=== PATIENT | female | born 1955 | race African-American/Black ===

== ENCOUNTER 2016-04-12 16:16 | Emergency (ER) | payer MEDICARE, OTHER ==
[2016-04-12] MEDS ORDERED: IPRATROPIUM-ALBUTEROL 3 ML NEB INHALATION STA (18:17)
[2016-04-12 18:20] LABS: Glucose,Whole Blood 157 mg/dL (75-99)
--- NOTE | 2016-04-12 18:30 | ED ---
URI HPI - General Chief Complaint: Upper Respiratory Infection Stated Complaint: Congestion,Fever Time Seen by Provider: 04/12/16 17:49 Source: patient, RN notes reviewed Mode of arrival: wheelchair Limitations: no limitations - History of Present Illness Initial Comments: Patient is a 60-year-old female presents to the emergency room for evaluation of cough and congestion. Patient states she has been having cold symptoms for the past 3 days. Patient states having all over body aches. Patient states that he nasal congestion, eyes watering, ear pain, throat pain and productive cough. Patient states she has pain every time she coughs. Patient denies nausea or vomiting, abdominal pain. Patient states been having on and off hot flashes and cold sweats. Patient denies taking her temperature. Patient denies receiving her influenza vaccine this year. Patient does admit that she has a history of asthma. Patient states has been using her inhaler no relief of symptoms. Patient admits to smoking daily. - Related Data Home Medications Medication Instructions Recorded Confirmed HYDROcodone/APAP 10-325MG [[place] 1 tab PO TID PRN 08/19/13 04/12/16 10] Insulin Aspart [NovoLOG] 28 unit SQ TID-W/MEALS 08/19/13 04/12/16 Insulin Glargine [Lantus] 58 unit SQ HS 08/19/13 04/12/16 Topiramate [Topamax] 100 mg PO BID 08/19/13 04/12/16 amLODIPine BESYLATE [Norvasc] 10 mg PO DAILY 08/19/13 04/12/16 levETIRAcetam [Keppra] 750 mg PO BID 08/19/13 04/12/16 metFORMIN HCL [Glucophage] 1,000 mg PO BID 08/19/13 04/12/16 Clopidogrel [Plavix] 75 mg PO DAILY 06/06/14 04/12/16 Levothyroxine Sodium [Synthroid] 200 mcg PO DAILY 02/28/15 04/12/16 Docusate Sodium [Dok] 100 mg PO DAILY 05/18/15 04/12/16 Albuterol Inhaler [Ventolin Hfa 1 - 2 puff INHALATION RT-Q6H PRN 07/10/15 Inhaler] Metoprolol Succinate [Toprol XL] 25 mg PO BID 04/12/16 04/12/16 Montelukast [Singulair] 10 mg PO DAILY 04/12/16 04/12/16 Rosuvastatin [Crestor] 10 mg PO HS 04/12/16 04/12/16 Previous Rx's Medication Instructions Recorded Azithromycin [Zithromax Z-pack] 250 mg PO DIRECTED #6 tab 04/12/16 predniSONE 50 mg PO DAILY #5 tab 04/12/16 Allergies Allergy/AdvReac Type Severity Reaction Status Date / Time No Known Allergies Allergy Verified 04/12/16 18:12 Review of Systems ROS Statement: Those systems with pertinent positive or pertinent negative responses have been documented in the HPI. ROS Other: All systems not noted in ROS Statement are negative. Past Medical History Past Medical History: Asthma, Blood Disorder, COPD, Diabetes Mellitus, Hyperlipidemia, Hypertension, Osteoarthritis (OA), Seizure Disorder, Sleep Apnea /CPAP/BIPAP Additional Past Medical History / Comment(s): HX OF ANEMIA, LAST SEIZURE YEARS AGO., STATES "MILD STROKE"-DENIES WEAKNESS OR ANY PROBLEMS , MIGRAINES, USES C -PAP MACHINE, CONSTIPATION, BACK & NECK PAIN. STATES CURRENT SUNBURN W/RASH ON ARMS. History of Any Multi-Drug Resistant Organisms: None Reported Past Surgical History: Breast Surgery, Ear Surgery, Hysterectomy, Tubal Ligation Additional Past Surgical History / Comment(s): Biopsy on left breast; cyst removed from ear; thyroid removed in Oct 2011. Colonoscopy. Past Anesthesia/Blood Transfusion Reactions: Previous Problems w/ Anesthesia Additional Past Anesthesia/Blood Transfusion Reaction / Comment(s): STATES DIFFICULTY WAKING UP AFTER ANESTHESIA, HX OF BLOOD TRANSFUSION X2 (DENIES REACTION). Past Psychological History: No Psychological Hx Reported Smoking Status: Current every day smoker Past Alcohol Use History: None Reported Additional Past Alcohol Use History / Comment(s): SMOKES 1 PACK Q 3-4 DAYS. STARTED SMOKING AGE 18 AND SMOKED OFF AND ON. Past Drug Use History: None Reported - Past Family History Mother Family Medical History: Myocardial Infarction ([place]) Additional Family Medical History / Comment(s): passed at 54 Father Family Medical History: Cancer Additional Family Medical History / Comment(s): Kidney and liver CA General Exam - General Exam Comments Initial Comments: Sitting in exam bed, no acute distress. Limitations: no limitations General appearance: alert, in no apparent distress Head exam: Present: atraumatic, normocephalic, normal inspection Eye exam: Present: normal appearance ENT exam: Present: normal exam, normal oropharynx, mucous membranes moist, TM's normal bilaterally, normal external ear exam Neck exam: Present: normal inspection Respiratory exam: Present: wheezes. Absent: respiratory distress Cardiovascular Exam: Present: regular rate, normal rhythm, normal heart sounds Extremities exam: Present: normal inspection Back exam: Present: normal inspection Neurological exam: Present: alert, oriented X3, CN II-XII intact, normal gait Psychiatric exam: Present: normal affect, normal mood Skin exam: Present: warm, dry, intact, normal color. Absent: rash Course Vital Signs 04/12/16 04/12/16 04/12/16 16:23 18:32 18:47 Temperature 98.7 F Pulse Rate 99 96 105 H Respiratory 18 Rate Blood Pressure 149/65 O2 Sat by Pulse 100 Oximetry Medical Decision Making - Medical Decision Making Patient is a 60 year old female presents to the emergency room for evaluation of cough and congestion. Chest x-ray shows no acute findings. Influenza negative. Due to patient's past medical history of asthma and sinus congestion will place patient on antibiotics and prednisone. Advised patient to follow-up with primary care provider in 1-2 days for reevaluation. Patient states she understands everything that was discussed with her. Return parameters discussed. - Lab Data Lab Results 04/12/16 04/12/16 Range/Units 18:17 18:22 POC Glucose (mg/dL) 157 H (75-99) mg/dL POC Glu Evs Manager ID Dominick Nichole Influenza Type A RNA Not Detected (Not Detectd) Influenza Type B (PCR) Not Detected (Not Detectd) - Radiology Data Radiology results: report reviewed, image reviewed Disposition Clinical Impression: Upper respiratory infection Disposition: HOME SELF-CARE Condition: Good Instructions: Upper Respiratory Infection (ED) Additional Instructions: Take medications as directed. Please follow up with primary care provider in 1- 2 days. If any new symptom arises or symptoms worsen, return to ER as soon as possible. Prescriptions: Azithromycin [Zithromax Z-pack] 250 mg PO DIRECTED #6 tab predniSONE 50 mg PO DAILY #5 tab Referrals: Daniella Wong MD [Primary Care Provider] - 1-2 days Time of Disposition: 19:05
--- NOTE | 2016-04-12 18:37 | XR ---
EXAMINATION TYPE: XR chest 2V DATE OF EXAM: 04/12/2016 6:29 PM COMPARISON: 02/09/2016 HISTORY: Cough and congestion for 3 days TECHNIQUE: Frontal and lateral views of the chest are obtained. FINDINGS: Heart and mediastinum are normal. Lungs are clear. Diaphragm is normal. There is no sign o f pleural effusion. Bony thorax is intact. There is no heart failure. IMPRESSION: Normal chest. No change.
[2016-04-12 19:20] VITALS: BP 164/73; PULSE 90; RESP 20; TEMP 97.8
== END 2016-04-12 19:20 | disposition home or self-care (01) ==
LOC: EC 16:16
DX: J06.9 Acute upper respiratory infection, unspecified (principal); J44.9 Chronic obstructive pulmonary disease, unspecified; J45.909 Unspecified asthma, uncomplicated; F17.200 Nicotine dependence, unspecified, uncomplicated; I10 Essential (primary) hypertension; G40.909 Epilepsy, unspecified, not intractable, without status epilepticus; E78.5 Hyperlipidemia, unspecified; E11.9 Type 2 diabetes mellitus without complications; G43.909 Migraine, unspecified, not intractable, without status migrainosus; G47.30 Sleep apnea, unspecified; M19.90 Unspecified osteoarthritis, unspecified site; Z99.89 Dependence on other enabling machines and devices; Z79.02 Long term (current) use of antithrombotics/antiplatelets; Z79.84 Long term (current) use of oral hypoglycemic drugs; Z79.4 Long term (current) use of insulin; Z79.899 Other long term (current) drug therapy
CPT/HCPCS: 36415; 71020; 87502; 94640; 99284

== ENCOUNTER 2016-07-14 12:52 | Emergency (ER) | payer MEDICARE, OTHER ==
[2016-07-14 13:22] VITALS: RESP 18
--- NOTE | 2016-07-14 13:59 | ED ---
Extremity Problem HPI - General Chief complaint: Extremity Problem,Nontraumatic Stated complaint: R/O DVT sent by PCP Time Seen by Provider: 07/14/16 13:27 Source: patient, RN notes reviewed, old records reviewed Mode of arrival: wheelchair Limitations: no limitations - History of Present Illness Initial comments: Patient is a pleasant 61-year-old female presenting to emergency Department with 1 week of right lower leg pain. Patient reports that the pain is diffusely through her leg. She states it's her some the posterior calf. Patient states that she's been having a hard time bearing weight on it. She states she did see her primary care provider today and they sent her in to rule out a possible blood clot. Patient states that she is a smoker. She reports she has one cigarette a day. She denies taking any hormones. Patient is morbidly obese and does sit most of the time. Patient denies any fever or chills, chest pain, shortness breath, nausea or vomiting. Patient has no history of blood clots or cancer. She denies any specific movement that could' ve caused her injuries. - Related Data Home Medications Medication Instructions Recorded Confirmed HYDROcodone/APAP 10-325MG [[place] 1 tab PO TID PRN 08/19/13 04/12/16 10] Insulin Aspart [NovoLOG] 28 unit SQ TID-W/MEALS 08/19/13 04/12/16 Insulin Glargine [Lantus] 58 unit SQ HS 08/19/13 04/12/16 Topiramate [Topamax] 100 mg PO BID 08/19/13 04/12/16 amLODIPine BESYLATE [Norvasc] 10 mg PO DAILY 08/19/13 04/12/16 levETIRAcetam [Keppra] 750 mg PO BID 08/19/13 04/12/16 metFORMIN HCL [Glucophage] 1,000 mg PO BID 08/19/13 04/12/16 Clopidogrel [Plavix] 75 mg PO DAILY 06/06/14 04/12/16 Levothyroxine Sodium [Synthroid] 200 mcg PO DAILY 02/28/15 04/12/16 Docusate Sodium [Dok] 100 mg PO DAILY 05/18/15 04/12/16 Albuterol Inhaler [Ventolin Hfa 1 - 2 puff INHALATION RT-Q6H PRN 07/10/15 Inhaler] Metoprolol Succinate [Toprol XL] 25 mg PO BID 04/12/16 04/12/16 Montelukast [Singulair] 10 mg PO DAILY 04/12/16 04/12/16 Rosuvastatin [Crestor] 10 mg PO HS 04/12/16 04/12/16 Previous Rx's Medication Instructions Recorded Azithromycin [Zithromax Z-pack] 250 mg PO DIRECTED #6 tab 04/12/16 predniSONE 50 mg PO DAILY #5 tab 04/12/16 HYDROcodone/APAP 5-325MG [[place] 1 tab PO Q6HR PRN #12 tab 07/14/16 5-325] Allergies Allergy/AdvReac Type Severity Reaction Status Date / Time No Known Allergies Allergy Verified 07/14/16 13:22 Review of Systems ROS Statement: Those systems with pertinent positive or pertinent negative responses have been documented in the HPI. ROS Other: All systems not noted in ROS Statement are negative. Past Medical History Past Medical History: Asthma, Blood Disorder, COPD, Diabetes Mellitus, Hyperlipidemia, Hypertension, Osteoarthritis (OA), Seizure Disorder, Sleep Apnea /CPAP/BIPAP Additional Past Medical History / Comment(s): HX OF ANEMIA, LAST SEIZURE YEARS AGO., STATES "MILD STROKE"-DENIES WEAKNESS OR ANY PROBLEMS , MIGRAINES, USES C -PAP MACHINE, CONSTIPATION, BACK & NECK PAIN. STATES CURRENT SUNBURN W/RASH ON ARMS. History of Any Multi-Drug Resistant Organisms: None Reported Past Surgical History: Breast Surgery, Ear Surgery, Hysterectomy, Tubal Ligation Additional Past Surgical History / Comment(s): Biopsy on left breast; cyst removed from ear; thyroid removed in Oct 2011. Colonoscopy. Past Anesthesia/Blood Transfusion Reactions: Previous Problems w/ Anesthesia Additional Past Anesthesia/Blood Transfusion Reaction / Comment(s): STATES DIFFICULTY WAKING UP AFTER ANESTHESIA, HX OF BLOOD TRANSFUSION X2 (DENIES REACTION). Past Psychological History: No Psychological Hx Reported Smoking Status: Current every day smoker Past Alcohol Use History: None Reported Additional Past Alcohol Use History / Comment(s): SMOKES 1 PACK Q 3-4 DAYS. STARTED SMOKING AGE 18 AND SMOKED OFF AND ON. Past Drug Use History: None Reported - Past Family History Mother Family Medical History: Myocardial Infarction ([place]) Additional Family Medical History / Comment(s): passed at 54 Father Family Medical History: Cancer Additional Family Medical History / Comment(s): Kidney and liver [place] General Exam - General Exam Comments Initial Comments: Karlene 7-year-old female. No acute distress. Patient is morbidly obese. Limitations: no limitations General appearance: alert, in no apparent distress Head exam: Present: atraumatic, normocephalic, normal inspection Eye exam: Present: normal appearance, PERRL, EOMI. Absent: scleral icterus, conjunctival injection, periorbital swelling ENT exam: Present: normal exam, mucous membranes moist Neck exam: Present: normal inspection. Absent: tenderness, meningismus, lymphadenopathy Respiratory exam: Present: normal lung sounds bilaterally. Absent: respiratory distress, wheezes, rales, rhonchi, stridor Cardiovascular Exam: Present: regular rate, normal rhythm, normal heart sounds. Absent: systolic murmur, diastolic murmur, rubs, gallop, clicks GI/Abdominal exam: Present: soft, normal bowel sounds. Absent: distended, tenderness, guarding, rebound, rigid Extremities exam: Present: normal inspection, full ROM, normal capillary refill. Absent: tenderness, pedal edema, joint swelling, calf tenderness Right Upper Leg exam: Present: normal inspection, full ROM, tenderness Knee exam: Present: normal inspection, full ROM, tenderness (Chest tenderness over the posterior knee. Patient also reports tenderness over the medial thigh. ) Lower Leg exam: Present: normal inspection, full ROM Ankle exam: Present: swelling. Absent: normal inspection Foot/Toe exam: Present: full ROM. Absent: normal inspection Neurovascular tendon exam: Present: no vascular compromise Gait: observed and limited by pain Back exam: Present: normal inspection Neurological exam: Present: alert, oriented X3, CN II-XII intact Psychiatric exam: Present: normal affect, normal mood Skin exam: Present: warm, dry, intact, normal color. Absent: rash Course Vital Signs 07/14/16 13:19 Temperature 98.3 F Pulse Rate 78 Respiratory 18 Rate Blood Pressure 183/101 O2 Sat by Pulse 100 Oximetry Medical Decision Making - Medical Decision Making Patient is a pleasant 61-year-old female presenting to emergency Department with 1 week of right lower leg pain. Patient reports that the pain is diffusely through her leg. She states it's her some the posterior calf. Patient states that she's been having a hard time bearing weight on it. She states she did see her primary care provider today and they sent her in to rule out a possible blood clot. Patient states that she is a smoker. She reports she has one cigarette a day. She denies taking any hormones. Patient is morbidly obese and does sit most of the time. Patient's ultrasound is negative for DVT. It was a limited study due to patient's body habitus. She would not tolerate compression. Patient x-rays are also negative for acute fracture. Reexamination patient is tender to palpation over muscles in her lower leg. Is likely related patient's body habitus, possible strain. Discussed that she is taking anti-inflammatory medications. I will write her for pain medicines. Discussed with the patient pain medication and I certainly follow-up back with her primary care provider. Patient agrees with the treatment plan. Return parameters were discussed. - Radiology Data Radiology results: report reviewed Lower extremity deep venous system is examined utilizing real-time. Suboptimal visualization due to patient's body habitus and patient unable to tolerate compressions. The right leg does appear negative for DVT. X-ray femur and tib-fib are negative for any acute fracture. Disposition Clinical Impression: Right leg pain Disposition: HOME SELF-CARE Condition: Good Instructions: Leg Pain (ED), Arthralgia (ED) Additional Instructions: Patient advised to rest, elevate extremity. Apply ice over it. Patient needs follow-up with primary care provider in the next 1-2 days given the fact we have negative exam findings at this time. Patient denies syncope medication as directed. Prescriptions: HYDROcodone/APAP 5-325MG [[place] 5-325] 1 tab PO Q6HR PRN #12 tab PRN Reason: Pain Referrals: Daniella Wong MD [Primary Care Provider] - 1-2 days Juan Gallardo MD [STAFF PHYSICIAN] - 1-2 days Time of Disposition: 14:56
--- NOTE | 2016-07-14 14:28 | US ---
EXAMINATION TYPE: US venous doppler duplex LE RT DATE OF EXAM: 07/14/2016 2:21 PM COMPARISON: NONE CLINICAL HISTORY: Pain. Rt leg pain, on blood thinners, no hx of blood clots, sent over from PCP SIDE PERFORMED: Right TECHNIQUE: The lower extremity deep venous system is examined utilizing real time linear array sonog ara with graded compression, doppler sonography and color-flow sonography. VESSELS IMAGED: External Iliac Vein (EIV) Common Femoral Vein Deep Femoral Vein Greater Saphenous Vein * Femoral Vein Popliteal Vein Small Saphenous Vein * Proximal Calf Veins (* superficial vessels) Suboptimal visualization due to patient body habitus and patient unable to tolerate compressions Right Leg: Appears negative for DVT IMPRESSION: 1. No diagnostic evidence of DVT visualized
--- NOTE | 2016-07-14 14:52 | XR ---
EXAMINATION TYPE: XR tibia fibula RT DATE OF EXAM: 07/14/2016 2:37 PM CLINICAL HISTORY: pain TECHNIQUE: AP and lateral images of the right tibia and fibula are obtained. COMPARISON: None. FINDINGS: There is no acute fracture/dislocation evident. The joint spaces appear within normal gooden its. The overlying soft tissue appears unremarkable. IMPRESSION: There is no acute fracture or dislocation seen. ICD 10 NO FRACTURE, INITIAL EVALUATION
--- NOTE | 2016-07-14 14:52 | XR ---
EXAMINATION TYPE: XR femur RT DATE OF EXAM: 07/14/2016 2:37 PM CLINICAL HISTORY: pain TECHNIQUE: Two views of the right femur are obtained. COMPARISON: None. FINDINGS: There is no acute fracture or dislocation seen of the femur. The hip and knee joints appear within normal limits. The overlying soft tissue appears unremarkable. IMPRESSION: There is no acute fracture or dislocation seen of the femur. ICD 10 NO FRACTURE, INITIAL EVALUATION
[2016-07-14] MEDS ORDERED: ORPHENADRINE 30 MG/ML 2 ML VIAL IM STA (15:02)
[2016-07-14 15:19] VITALS: BP 188/93; PULSE 84; TEMP 97.1
== END 2016-07-14 15:24 | disposition home or self-care (01) ==
LOC: EC 12:52
DX: M79.661 Pain in right lower leg (principal); E66.01 Morbid (severe) obesity due to excess calories; E11.9 Type 2 diabetes mellitus without complications; E78.5 Hyperlipidemia, unspecified; I10 Essential (primary) hypertension; M19.90 Unspecified osteoarthritis, unspecified site; G40.909 Epilepsy, unspecified, not intractable, without status epilepticus; F17.200 Nicotine dependence, unspecified, uncomplicated; Z79.4 Long term (current) use of insulin; Z79.01 Long term (current) use of anticoagulants; Z79.899 Other long term (current) drug therapy
CPT/HCPCS: 73552; 73590; 93971; 99284; 96372; J2360

== ENCOUNTER → 2016-07-15 | Outpatient (CLI) | payer MEDICARE, OTHER ==
--- NOTE | 2016-07-16 10:33 | MM ---
Reason for exam: screening (asymptomatic). Last mammogram was performed 1 year and 1 month ago. History: Patient is postmenopausal. Family history of breast cancer in sister. Benign excisional biopsy of the left breast, 2001. MG 3D Screening Mammo W/Cad Bilateral CC, MLO, and XCCL view(s) were taken. Prior study comparison: June 25, 2015, bilateral MG 3d screening mammo w/cad. May 31, 2014, bilateral MG diagnostic mammo w CAD [facility]. May 29, 2013, bilateral digital screening mammo w/CAD. There are scattered fibroglandular densities. Finding: There are typically benign vascular, round calcifications in both breasts. There is a chronic nodularity bilaterally. There is no dominant lesion. Benign dystrophic calcifications in the right axilla. ASSESSMENT: Benign, BI-RAD 2 RECOMMENDATION: Routine screening mammogram of both breasts in 1 year.
== END | disposition home or self-care (01) ==
LOC: RADMAMWWP 14:47
PROVIDERS: ATTEND Internal Medicine
DX: Z12.31 Encounter for screening mammogram for malignant neoplasm of breast (principal); Z80.3 Family history of malignant neoplasm of breast
CPT/HCPCS: 77063; G0202

== ENCOUNTER 2017-01-04 00:32 | Emergency (ER) | payer MEDICARE, OTHER ==
[2017-01-04] MEDS ORDERED: IPRATROPIUM-ALBUTEROL 3 ML NEB INHALATION STA (00:56)
[2017-01-04] MEDS ORDERED: BENZONATATE 100 MG CAP PO STA (00:56)
--- NOTE | 2017-01-04 01:51 | XR ---
EXAMINATION TYPE: XR chest 2V DATE OF EXAM: 01/04/2017 COMPARISON: 12/14/2016 HISTORY: Chest pain TECHNIQUE: Frontal and lateral views of the chest are obtained. FINDINGS: Heart and mediastinum are normal. Lungs are clear. Diaphragm is normal. Bony thorax appear s normal. IMPRESSION: Normal chest. No change.
[2017-01-04 02:15] VITALS: BP 118/53; PULSE 88; RESP 18; TEMP 97.8
--- NOTE | 2017-01-04 02:23 | ED ---
URI HPI - General Chief Complaint: Upper Respiratory Infection Stated Complaint: PAUL Time Seen by Provider: 01/04/17 00:47 Source: patient Mode of arrival: ambulatory Limitations: no limitations - History of Present Illness Initial Comments: 61-year-old female patient presents to emergency department today for evaluation of worsening cough. Patient states that she has had upper respiratory symptoms and cough for the last 3-4 days. She states that she has nasal congestion, sore throat, and a persisting cough that doesn't seem to be getting any better. She states that she was seen at her primary care physician' s office a couple of days ago, she was given cough syrup and Phenergan with codeine as well as prednisone and states that she is not feeling any better. She states that her ribs hurt from coughing so much. She states that she is coughing up yellowish sputum. She states that she does smoke cigarettes however has been unable to smoke for the last couple of days due to her symptoms. Patient denies any recent rash, fever, chills, shortness breath, chest pain, abdominal pain, nausea, vomiting, diarrhea, constipation, back pain , numbness, tingling, dizziness, weakness, hematuria, dysuria, urinary urgency, urinary frequency, headache, visual changes, or any other complaints. - Related Data Home Medications Medication Instructions Recorded Confirmed HYDROcodone/APAP 10-325MG [[place] 1 tab PO TID PRN 08/19/13 01/04/17 10] Insulin Aspart [NovoLOG] 28 unit SQ TID-W/MEALS 08/19/13 01/04/17 Insulin Glargine [Lantus] 60 unit SQ HS 08/19/13 01/04/17 Topiramate [Topamax] 100 mg PO BID 08/19/13 01/04/17 amLODIPine BESYLATE [Norvasc] 10 mg PO DAILY 08/19/13 01/04/17 levETIRAcetam [Keppra] 750 mg PO BID 08/19/13 01/04/17 Clopidogrel [Plavix] 75 mg PO DAILY 06/06/14 01/04/17 Levothyroxine Sodium [Synthroid] 200 mcg PO DAILY 02/28/15 01/04/17 Docusate Sodium [Dok] 100 mg PO DAILY 05/18/15 01/04/17 Albuterol Inhaler [Ventolin Hfa 1 - 2 puff INHALATION RT-Q6H PRN 07/10/15 Inhaler] Montelukast [Singulair] 10 mg PO DAILY 04/12/16 01/04/17 Rosuvastatin [Crestor] 10 mg PO HS 04/12/16 01/04/17 Metoprolol Tartrate [Lopressor] 25 mg PO DAILY 12/14/16 01/04/17 metFORMIN HCL 1,000 mg PO BID 12/14/16 01/04/17 predniSONE See Taper PO DAILY 12/14/16 01/04/17 Previous Rx's Medication Instructions Recorded Furosemide [Lasix] 20 mg PO DAILY #7 tab 12/14/16 Albuterol Sulfate [Proair Hfa] 1 - 2 puff INHALATION Q6HR PRN #1 01/04/17 inhaler Azithromycin [Zithromax Z-pack] 0 mg PO DIRECTED #6 tab 01/04/17 Allergies Allergy/AdvReac Type Severity Reaction Status Date / Time No Known Allergies Allergy Verified 01/04/17 00:36 Review of Systems ROS Statement: Those systems with pertinent positive or pertinent negative responses have been documented in the HPI. ROS Other: All systems not noted in ROS Statement are negative. Past Medical History Past Medical History: Asthma, Blood Disorder, COPD, Diabetes Mellitus, Hyperlipidemia, Hypertension, Osteoarthritis (OA), Seizure Disorder, Sleep Apnea /CPAP/BIPAP Additional Past Medical History / Comment(s): HX OF ANEMIA, LAST SEIZURE YEARS AGO., STATES "MILD STROKE"-DENIES WEAKNESS OR ANY PROBLEMS , MIGRAINES, USES C -PAP MACHINE, CONSTIPATION, BACK & NECK PAIN. STATES CURRENT SUNBURN W/RASH ON ARMS. History of Any Multi-Drug Resistant Organisms: None Reported Past Surgical History: Breast Surgery, Ear Surgery, Hysterectomy, Tubal Ligation Additional Past Surgical History / Comment(s): Biopsy on left breast; cyst removed from ear; thyroid removed in Oct 2011. Colonoscopy. Past Anesthesia/Blood Transfusion Reactions: Previous Problems w/ Anesthesia Additional Past Anesthesia/Blood Transfusion Reaction / Comment(s): STATES DIFFICULTY WAKING UP AFTER ANESTHESIA, HX OF BLOOD TRANSFUSION X2 (DENIES REACTION). Past Psychological History: No Psychological Hx Reported Smoking Status: Current some day smoker Past Alcohol Use History: None Reported Past Drug Use History: None Reported - Past Family History Mother Family Medical History: Myocardial Infarction (DC) Additional Family Medical History / Comment(s): passed at 54 Father Family Medical History: Cancer Additional Family Medical History / Comment(s): Kidney and liver CA General Exam Limitations: no limitations General appearance: alert, in no apparent distress, other (This is a well- developed, obese female patient in no acute distress. Vital signs upon presentation are temperature 98.8F, pulse 104, respirations 20, blood pressure 172/74, pulse ox 99% on room air.) Eye exam: Present: normal appearance, PERRL, EOMI. Absent: scleral icterus, conjunctival injection, periorbital swelling ENT exam: Present: normal exam, normal oropharynx, mucous membranes moist, TM's normal bilaterally Neck exam: Present: normal inspection. Absent: tenderness, meningismus, lymphadenopathy Respiratory exam: Present: normal lung sounds bilaterally, other (Patient does have a harsh cough noted frequently during exam. It worsens when she attempts to take a deep breath.). Absent: respiratory distress, wheezes, rales, rhonchi , stridor Cardiovascular Exam: Present: regular rate, normal rhythm, normal heart sounds. Absent: systolic murmur, diastolic murmur, rubs, gallop, clicks GI/Abdominal exam: Present: soft, normal bowel sounds. Absent: distended, tenderness, guarding, rebound, rigid Neurological exam: Present: alert, oriented X3, CN II-XII intact Psychiatric exam: Present: normal affect, normal mood Skin exam: Present: warm, dry, intact, normal color. Absent: rash Course Vital Signs 01/04/17 01/04/17 01/04/17 00:34 01:10 01:20 Temperature 98.8 F Pulse Rate 104 H 100 104 H Respiratory 20 Rate Blood Pressure 172/74 O2 Sat by Pulse 99 Oximetry 01/04/17 02:15 Temperature 97.8 F Pulse Rate 88 Respiratory 18 Rate Blood Pressure 118/53 O2 Sat by Pulse 98 Oximetry Medical Decision Making - Medical Decision Making 61-year-old female patient presents to emergency department today for complaints of worsening cough despite being on prednisone and Phenergan with codeine. Straight the chest was obtained and showed no acute cardiopulmonary process. Patient did receive a breathing treatment here in the department, states that this did not help her symptoms much. I did note during my reevaluation that her cough was decreased. Lung sounds were clear with no wheezing. I did instruct her to continue taking the prednisone as this will help her acute bronchitis. She was given a Pro Air inhaler for symptoms. She is instructed to follow-up with her primary care physician for recheck in 1-2 days. I instructed her to return here immediately for any new, worsening, or concerning symptoms. She verbalizes understanding and agreement with this plan. - Radiology Data Radiology results: report reviewed, image reviewed Two-view x-ray of the chest was performed and showed a heart and mediastinum are normal. Lungs are clear. Diaphragm is from a. Bony thorax appears normal. Impression by Dr. Patel shows normal chest with no change. Disposition Clinical Impression: Bronchospasm with bronchitis, acute Disposition: HOME SELF-CARE Condition: Good Instructions: Acute Bronchitis (ED), Bronchospasm (ED) Additional Instructions: Take medications as directed. Complete antibiotic prescription in full. Complete steroid prescription in full. Follow-up with your primary care physician for recheck in 1-2 days. Return immediately for any new, worsening, or concerning symptoms. Prescriptions: Albuterol Sulfate [Proair Hfa] 1 - 2 puff INHALATION Q6HR PRN #1 inhaler PRN Reason: Wheezing Azithromycin [Zithromax Z-pack] 0 mg PO DIRECTED #6 tab Referrals: Daniella Wong MD [Primary Care Provider] - 1-2 days Time of Disposition: 02:21
== END 2017-01-04 02:41 | disposition home or self-care (01) ==
LOC: EC 00:32
DX: J20.9 Acute bronchitis, unspecified (principal); E11.9 Type 2 diabetes mellitus without complications; E78.5 Hyperlipidemia, unspecified; I10 Essential (primary) hypertension; M19.90 Unspecified osteoarthritis, unspecified site; G40.909 Epilepsy, unspecified, not intractable, without status epilepticus; E66.9 Obesity, unspecified; F17.200 Nicotine dependence, unspecified, uncomplicated; Z68.43 Body mass index [BMI] 50.0-59.9, adult; Z79.4 Long term (current) use of insulin; Z79.02 Long term (current) use of antithrombotics/antiplatelets; Z79.84 Long term (current) use of oral hypoglycemic drugs; Z79.52 Long term (current) use of systemic steroids; Z79.899 Other long term (current) drug therapy
CPT/HCPCS: 71020; 94640; 99283

== ENCOUNTER → 2017-07-22 | Outpatient (CLI) | payer MEDICARE, OTHER ==
--- NOTE | 2017-07-25 08:45 | MM ---
Reason for exam: screening (asymptomatic). Last mammogram was performed 1 year ago. History: Patient is postmenopausal. Family history of breast cancer in sister. Benign excisional biopsy of the left breast, 2001. Physical Findings: A clinical breast exam by your physician is recommended on an annual basis and results should be correlated with mammographic findings. MG 3D Screening Mammo W/Cad Bilateral CC, MLO, and XCCL view(s) were taken. Prior study comparison: July 15, 2016, bilateral MG 3d screening mammo w/cad. June 25, 2015, bilateral MG 3d screening mammo w/cad. There are scattered fibroglandular densities. There are typically benign round vascular calcifications in both breasts. There is chronic nodularity bilaterally. There is no discrete abnormality. ASSESSMENT: Benign, BI-RAD 2 RECOMMENDATION: Routine screening mammogram of both breasts in 1 year.
== END | disposition home or self-care (01) ==
LOC: RADMAMWWP 11:49
PROVIDERS: ATTEND Internal Medicine
DX: Z12.31 Encounter for screening mammogram for malignant neoplasm of breast (principal)
CPT/HCPCS: 77063; 77067

== ENCOUNTER 2017-08-20 18:48 | Emergency (ER) | payer MEDICARE, OTHER ==
--- NOTE | 2017-08-20 19:16 | ED ---
General Adult HPI - General Chief complaint: Upper Respiratory Infection Stated complaint: SOB, Swollen feet Time Seen by Provider: 08/20/17 19:00 Source: patient, RN notes reviewed Mode of arrival: wheelchair Limitations: no limitations - History of Present Illness Initial comments: Chief complaint and history of present illness a 62-year-old female who is been on antibiotics for approximately one week because of upper respiratory tract infection. Patient reports she has persistent coughing has muscle skeletal pain to her abdominal muscles. Said she felt hot yesterday but afebrile now. When she coughs is yellow to whitish colored phlegm. - Related Data Home Medications Medication Instructions Recorded Confirmed HYDROcodone/APAP 10-325MG [[place] 1 tab PO TID PRN 08/19/13 01/04/17 10] Insulin Aspart [NovoLOG] 28 unit SQ TID-W/MEALS 08/19/13 01/04/17 Insulin Glargine [Lantus] 60 unit SQ HS 08/19/13 01/04/17 Topiramate [Topamax] 100 mg PO BID 08/19/13 01/04/17 amLODIPine BESYLATE [Norvasc] 10 mg PO DAILY 08/19/13 01/04/17 levETIRAcetam [Keppra] 750 mg PO BID 08/19/13 01/04/17 Clopidogrel [Plavix] 75 mg PO DAILY 06/06/14 01/04/17 Levothyroxine Sodium [Synthroid] 200 mcg PO DAILY 02/28/15 01/04/17 Docusate Sodium [Dok] 100 mg PO DAILY 05/18/15 01/04/17 Albuterol Inhaler [Ventolin Hfa 1 - 2 puff INHALATION RT-Q6H PRN 07/10/15 Inhaler] Montelukast [Singulair] 10 mg PO DAILY 04/12/16 01/04/17 Rosuvastatin [Crestor] 10 mg PO HS 04/12/16 01/04/17 Metoprolol Tartrate [Lopressor] 25 mg PO DAILY 12/14/16 01/04/17 metFORMIN HCL 1,000 mg PO BID 12/14/16 01/04/17 predniSONE See Taper PO DAILY 12/14/16 01/04/17 Previous Rx's Medication Instructions Recorded Furosemide [Lasix] 20 mg PO DAILY #7 tab 12/14/16 Albuterol Sulfate [Proair Hfa] 1 - 2 puff INHALATION Q6HR PRN #1 01/04/17 inhaler Azithromycin [Zithromax Z-pack] 0 mg PO DIRECTED #6 tab 01/04/17 Azithromycin [Zithromax Z-pack] 250 mg PO DIRECTED #6 tab 08/20/17 Promethaz-Cod 6.25-10 mg/5 ml 5 ml PO Q4HR PRN 3 Days #90 ml 08/20/17 [Phenergan with Codeine] Allergies Allergy/AdvReac Type Severity Reaction Status Date / Time No Known Allergies Allergy Verified 08/20/17 18:56 Review of Systems ROS Statement: Those systems with pertinent positive or pertinent negative responses have been documented in the HPI. Review of systems no headache or visual acuity changes no chest pain but she does have coughing. She has muscle skeletal discomfort to her abdominal muscles coughing. No nausea no vomiting occasional episodes of constipation. No neuro deficits all systems are reviewed. Past medical problems significant for COPD, insulin-dependent diabetes mellitus, hyperlipidemia, hypertension, seizure disorder but no seizure for very long period of time. Sleep apnea. Surgeries include breast biopsy which was negative. Ear surgery, total hysterectomy,. Patient's family history significant for father had lung cancer. She denies any ALLERGIES she does smoke which is not else this past week strongly encouraged to never smoke again. Denies alcohol use. ROS Other: All systems not noted in ROS Statement are negative. Past Medical History Past Medical History: Asthma, Blood Disorder, COPD, Diabetes Mellitus, Hyperlipidemia, Hypertension, Osteoarthritis (OA), Seizure Disorder, Sleep Apnea /CPAP/BIPAP Additional Past Medical History / Comment(s): HX OF ANEMIA, LAST SEIZURE YEARS AGO., STATES "MILD STROKE"-DENIES WEAKNESS OR ANY PROBLEMS , MIGRAINES, USES C -PAP MACHINE, CONSTIPATION, BACK & NECK PAIN. STATES CURRENT SUNBURN W/RASH ON ARMS. History of Any Multi-Drug Resistant Organisms: None Reported Past Surgical History: Breast Surgery, Ear Surgery, Hysterectomy, Tubal Ligation Additional Past Surgical History / Comment(s): Biopsy on left breast; cyst removed from ear; thyroid removed in Oct 2011. Colonoscopy. Past Anesthesia/Blood Transfusion Reactions: Previous Problems w/ Anesthesia Additional Past Anesthesia/Blood Transfusion Reaction / Comment(s): STATES DIFFICULTY WAKING UP AFTER ANESTHESIA, HX OF BLOOD TRANSFUSION X2 (DENIES REACTION). Past Psychological History: No Psychological Hx Reported Smoking Status: Current some day smoker Past Alcohol Use History: None Reported Past Drug Use History: None Reported - Past Family History Mother Family Medical History: Myocardial Infarction (ID) Additional Family Medical History / Comment(s): passed at 54 Father Family Medical History: Cancer Additional Family Medical History / Comment(s): Kidney and liver CA General Exam - General Exam Comments Initial Comments: General: The patient is awake and alert, here because of persistent coughing event to being treated for one week with antibiotics for an upper respiratory tract infection. Vital signs shows temperature 97.9 pulse 85 respiratory rate 22 pulse ox 99% room air blood pressure 184/85. Eye: Pupils are equal, round and reactive to light, extra-ocular movements are intact ; there is normal conjunctiva bilaterally. No signs of icterus. Ears, nose, mouth and throat: There are moist mucous membranes and no oral lesions. Neck: The neck is supple, there is no tenderness . Cardiovascular: There is a regular rate and rhythm. No murmur, rub or gallop is appreciated. Respiratory: Lungs are clear to auscultation, respirations are non-labored, breath sounds are equal. No wheezes, stridor, rales, or rhonchi. Persistent coughing. States it is productive color the phlegm is white yellow. She's been on antibiotics twice a day for 1 week several days ago. Cannot the name of the antibiotic. Gastrointestinal: Soft, non-distended, non-tender abdomen without masses or organomegaly noted. There is no rebound or guarding present. No CVA tenderness. Bowel sounds are unremarkable. Back: There is no tenderness to palpation in the midline. There is no obvious deformity. No rashes noted. Musculoskeletal: Full range of motion upper and lower extremities. Neurological: No neuro deficits. No complaints of any dizziness. Skin: Skin is warm and dry and no rashes or lesions are noted. Psychiatric: Cooperative, Limitations: no limitations Course Vital Signs 08/20/17 18:52 Temperature 97.9 F Pulse Rate 85 Respiratory 22 Rate Blood Pressure 184/85 O2 Sat by Pulse 99 Oximetry Medical Decision Making - Medical Decision Making Medical decision making; is a 62-year-old female who has been on amoxicillin 1 week for an upper restraint tract infection. Complains of persistent chronic cough. Afebrile. Chest x-ray is done AP and lateral view and reviewed by radiologist his impression is the lungs are clear. The overlying soft tissues are prominent. Pleural spaces are negative. The cardiac silhouette is not enlarged. The mediastinal pleural silhouettes are unremarkable skeletal structures are intact without focal findings. Impression no acute process. As read by Dr. Master Albarran. At this time the patient be switched over to a Z-Tay to be taken as directed and follow-up with family physician. Her first dose started in emergency room. She'll also be started on Phenergan with codeine to control cough. Disposition Clinical Impression: Upper respiratory tract infection, Cough with expectoration Disposition: HOME SELF-CARE Condition: Fair Instructions: Upper Respiratory Infection (ED) Additional Instructions: Increase fluids. Switch current antibiotic to a Zithromax and. Use Phenergan with codeine 1 teaspoon every 4 hours for cough. Follow-up with her family physician return emergency room as needed Prescriptions: Azithromycin [Zithromax Z-pack] 250 mg PO DIRECTED #6 tab Promethaz-Cod 6.25-10 mg/5 ml [Phenergan with Codeine] 5 ml PO Q4HR PRN 3 Days # 90 ml PRN Reason: Cough Is patient prescribed a controlled substance at d/c from ED?: Yes When asked, does pt state using other controlled substances?: No If prescribed controlled substance>3 days was MAPS reviewed?: No If Rx opioid, was Start Talking consent form obtained?: Yes Referrals: Daniella Wong MD [Primary Care Provider] - 1-2 days Time of Disposition: 20:31
--- NOTE | 2017-08-20 20:20 | XR ---
EXAMINATION: XR chest 2V DATE AND TIME: 08/20/2017 7:27 PM ORDERING PROVIDER: Royce Brown MD CLINICAL INDICATION: Productive cough TECHNIQUE: PA and lateral COMPARISON: 01/04/2017 DESCRIPTION: The overlying soft tissues are prominent. The lungs are clear. The pleural spaces are negative. The cardiac silhouette is not enlarged. The mediastinal and pleural silhouettes are unremarkable. The skeletal structures are intact without focal findings. IMPRESSION: NO ACUTE PROCESS.
[2017-08-20] MEDS ORDERED: PROMETHAZ-COD 6.25-10 MG/5 ML 5 ML CUP PO PRN (20:26)
[2017-08-20] MEDS ORDERED: AZITHROMYCIN 250 MG TAB PO STA (20:27)
[2017-08-20 20:40] VITALS: BP 173/81; PULSE 81; RESP 15; TEMP 98.4
== END 2017-08-20 20:43 | disposition home or self-care (01) ==
LOC: EC 18:48
DX: J06.9 Acute upper respiratory infection, unspecified (principal); E78.5 Hyperlipidemia, unspecified; I10 Essential (primary) hypertension; J44.9 Chronic obstructive pulmonary disease, unspecified; E11.9 Type 2 diabetes mellitus without complications; G40.909 Epilepsy, unspecified, not intractable, without status epilepticus; G47.30 Sleep apnea, unspecified; M19.90 Unspecified osteoarthritis, unspecified site; F17.200 Nicotine dependence, unspecified, uncomplicated; Z79.02 Long term (current) use of antithrombotics/antiplatelets; Z79.4 Long term (current) use of insulin; Z79.52 Long term (current) use of systemic steroids; Z79.899 Other long term (current) drug therapy; Z86.69 Personal history of other diseases of the nervous system and sense organs; Z86.73 Personal history of transient ischemic attack (TIA), and cerebral infarction without residual deficits; Z99.89 Dependence on other enabling machines and devices
CPT/HCPCS: 71046; 99283

== ENCOUNTER → 2017-12-14 | Outpatient (CLI) | payer MEDICARE, OTHER | END | disposition home or self-care (01) | LOC: RADMRIMAIN 18:17 | PROVIDERS: ATTEND Internal Medicine | DX: Z53.9 Procedure and treatment not carried out, unspecified reason (principal) ==

== ENCOUNTER 2018-04-03 16:00 | Emergency (ER) | payer MEDICARE, OTHER ==
[2018-04-03 16:19] VITALS: RESP 18
--- NOTE | 2018-04-03 18:41 | US ---
EXAMINATION TYPE: US venous doppler duplex LE LT DATE OF EXAM: 04/03/2018 5:32 PM COMPARISON: NONE CLINICAL HISTORY: Pain. Left leg pain. SIDE PERFORMED: Left TECHNIQUE: The lower extremity deep venous system is examined utilizing real time linear array sonog ara with graded compression, doppler sonography and color-flow sonography. VESSELS IMAGED: External Iliac Vein (EIV) Common Femoral Vein Deep Femoral Vein Greater Saphenous Vein * Femoral Vein Popliteal Vein Small Saphenous Vein * Proximal Calf Veins (* superficial vessels) Left Leg: Negative for DVT No evidence of DVT left leg. IMPRESSION: Normal left leg duplex venous sonogram.
--- NOTE | 2018-04-03 18:46 | XR ---
EXAMINATION TYPE: XR knee complete LT DATE OF EXAM: 04/03/2018 COMPARISON: 07/17/2013 HISTORY: Knee pain TECHNIQUE: 3 views FINDINGS: I see no fracture nor dislocation. Joint spaces are fairly normal. There is no sign of knee joint effusion. IMPRESSION: Negative left knee exam. No change.
[2018-04-03 19:07] LABS: Basophils % (A) 1 %; Eosinophils # (A) 0.2 k/uL (0-0.7); Eosinophils % (A) 2 %; HCT 37.6 % (34.0-46.0); HGB 12.4 gm/dL (11.4-16.0); Lymphocytes # (A) 3.6 k/uL (1.0-4.8); Lymphocytes % (A) 50 %; MCH 26.5 pg (25.0-35.0); MCHC 33.1 g/dL (31.0-37.0); Mean Platelet Volume 7.4; Monocytes # (A) 0.3 k/uL (0-1.0); Monocytes % (A) 4 %; Neutrophils % (A) 42 %; Platelet Count 352 k/uL (150-450); RDW 15.5 % (11.5-15.5); WBC 7.1 k/uL (3.8-10.6)
[2018-04-03 19:24] LABS: Calcium 10.1 mg/dL (8.4-10.2); Potassium 4.9 mmol/L (3.5-5.1); Total Bilirubin 0.3 mg/dL (0.2-1.3); Total Protein 7.3 g/dL (6.3-8.2)
[2018-04-03] MEDS ORDERED: MAGNESIUM HYDROXIDE 2,400 MG/10 ML CUP PO PRN (19:28)
--- NOTE | 2018-04-03 19:28 | ED ---
Extremity Problem HPI - General Chief complaint: Extremity Problem,Nontraumatic Stated complaint: leg swelling/pain & constipation Time Seen by Provider: 04/03/18 16:59 Source: patient Mode of arrival: ambulatory Limitations: no limitations - History of Present Illness Initial comments: 62-year-old female past medical history of diabetes and hypertension presenting today for chief complaint of left knee pain and constipation. Patient states she has been constipated on and off for the past 2 weeks. Patient states she has been taking a stool softener however this has not helped. Patient states she is passing flatulence. Patient denies any abdominal pain, nausea vomiting or diarrhea. Patient denies any melena or hematochezia. Patient also states she has noticed left knee pain. She states that increases range of motion. Patient denies any specific trauma. Patient denies any redness, fever, chills, nightsweats. Patient states that she has had swelling of the left LE, and was also concerned of possible DVT. Pt on plavix (pt does not know why she is on plavix). Pt is able to fully weight bear on the left lower extremity. Remainder of ROS negative, patient denies any recent fever, chills, shortness of breath, chest pain, back pain, abdominal pain, nausea or vomiting, numbness or tingling , dysuria or hematuria, headaches or visual changes, or any other complaints. - Related Data Home Medications Medication Instructions Recorded Confirmed HYDROcodone/APAP 10-325MG [[place] 1 tab PO TID PRN 08/19/13 04/03/18 10] Insulin Glargine [Lantus] 65 unit SQ HS 08/19/13 04/03/18 amLODIPine BESYLATE [Norvasc] 10 mg PO DAILY 08/19/13 04/03/18 levETIRAcetam [Keppra] 750 mg PO BID 08/19/13 04/03/18 Clopidogrel [Plavix] 75 mg PO DAILY 06/06/14 04/03/18 Levothyroxine Sodium [Synthroid] 200 mcg PO DAILY 02/28/15 04/03/18 Rosuvastatin [Crestor] 10 mg PO DAILY 04/12/16 04/03/18 metFORMIN HCL 1,000 mg PO BID 12/14/16 04/03/18 Albuterol Sulfate [Proair Hfa] 2 puff INHALATION RT-Q4H PRN 04/03/18 04/03/18 Ergocalciferol (Vitamin D2) 50,000 unit PO Q7D 04/03/18 04/03/18 [Vitamin D2] Gabapentin [Neurontin] 300 mg PO TID 04/03/18 04/03/18 Insulin Lispro [humaLOG Kwikpen] 30 unit SQ AC-TID 04/03/18 04/03/18 Topiramate [Topamax] 100 mg PO BID 04/03/18 04/03/18 Previous Rx's Medication Instructions Recorded Glycerin Adult Suppository 1 each RECTAL DAILY 2 Days #2 supp 04/03/18 Ibuprofen 800 mg PO Q8H PRN 7 Days #21 tablet 04/03/18 Allergies Allergy/AdvReac Type Severity Reaction Status Date / Time No Known Allergies Allergy Verified 04/03/18 17:23 Review of Systems ROS Statement: Those systems with pertinent positive or pertinent negative responses have been documented in the HPI. ROS Other: All systems not noted in ROS Statement are negative. Past Medical History Past Medical History: Asthma, Blood Disorder, COPD, Diabetes Mellitus, Hyperlipidemia, Hypertension, Osteoarthritis (OA), Seizure Disorder, Sleep Apnea /CPAP/BIPAP Additional Past Medical History / Comment(s): HX OF ANEMIA, LAST SEIZURE YEARS AGO., STATES "MILD STROKE"-DENIES WEAKNESS OR ANY PROBLEMS , MIGRAINES, USES C -PAP MACHINE, CONSTIPATION, BACK & NECK PAIN. STATES CURRENT SUNBURN W/RASH ON ARMS. History of Any Multi-Drug Resistant Organisms: None Reported Past Surgical History: Breast Surgery, Ear Surgery, Hysterectomy, Tubal Ligation Additional Past Surgical History / Comment(s): Biopsy on left breast; cyst removed from ear; thyroid removed in Oct 2011. Colonoscopy. Past Anesthesia/Blood Transfusion Reactions: Previous Problems w/ Anesthesia Additional Past Anesthesia/Blood Transfusion Reaction / Comment(s): STATES DIFFICULTY WAKING UP AFTER ANESTHESIA, HX OF BLOOD TRANSFUSION X2 (DENIES REACTION). Past Psychological History: No Psychological Hx Reported Smoking Status: Current some day smoker Past Alcohol Use History: None Reported Past Drug Use History: None Reported - Past Family History Mother Family Medical History: Myocardial Infarction ([place]) Additional Family Medical History / Comment(s): passed at 54 Father Family Medical History: Cancer Additional Family Medical History / Comment(s): Kidney and liver [place] General Exam - General Exam Comments Initial Comments: General: The patient is awake and alert, in no distress, and does not appear acutely ill. Eye: +3 mm pupils are equal, round and reactive to light, extra-ocular movements are intact. No nystagmus. There is normal conjunctiva bilaterally. No signs of icterus. Ears, nose, mouth and throat: There are moist mucous membranes and no oral lesions. Neck: The neck is supple, there is no tenderness or JVD. Cardiovascular: There is a regular rate and rhythm. No murmur, rub or gallop is appreciated. Respiratory: Lungs are clear to auscultation, respirations are non-labored, breath sounds are equal. No wheezes, stridor, rales, or rhonchi. Gastrointestinal: Soft, non-distended, non-tender abdomen without masses or organomegaly noted. There is no rebound or guarding present. No CVA tenderness. Bowel sounds are unremarkable. Musculoskeletal: Upon inspection of the legs they appear equal bilaterally, there is no obvious soft tissue swelling, or lower extremity edema. No pitting edema of the anterior tibial region or dorsum of foot. No noted erythema. Patient is able to range fully at the knees bilaterally. Patient does note discomfort with range of the left knee. Creptius on exam. This does not appear to be out of portion. Strength 5/5 of the LE equally b/l. Sensation intact of the LE b/l. DP pulses equal bilaterally 2+. Neurological: A&O x 3. CN II-XII intact, There are no obvious motor or sensory deficits. Coordination appears grossly intact. Speech is normal. Skin: Skin is warm and dry and no rashes or lesions are noted. Psychiatric: Cooperative, appropriate mood & affect, normal judgment. Limitations: no limitations Course Vital Signs 04/03/18 16:16 Temperature 97.9 F Pulse Rate 84 Respiratory 18 Rate Blood Pressure 130/79 O2 Sat by Pulse 100 Oximetry Medical Decision Making - Medical Decision Making Laboratory studies unremarkable. No overt signs of septic joint. No erythema or warmth palpation. Patient does have pain to range of motion of the left knee , crepitus noted. X-ray does not reveal significant joint effusion. Ultrasound negative for DVT. No noted lower extremity edema. No noted soft tissue swelling of the left knee. Patient is able to fully weight-bear and range. I feel patient's pain most likely due to osteoarthritis, pt is morbidly obese. Patient given strict return parameters for any worsening or change in symptoms. Patient abdominal exam benign. KUB does not show any acute abdomen. No evidence of obstruction. Patient states she is passing gas daily. Patient will be given milk of magnesia, and discharged with primary care provider and orthhopedicsurgery follow-up. Return parameters were discussed at length the patient who verbalized understanding. Patient is well-appearing I discussed the case with attending provider. Patient was discharged in stable condition appearing well prescriptions for glycol suppositories as well as ibuprofen 800 mg for information. - Lab Data Result diagrams: 04/03/18 18:50 04/03/18 18:50 Lab Results 04/03/18 04/03/18 Range/Units 18:50 18:50 WBC 7.1 (3.8-10.6) k/uL RBC 4.70 (3.80-5.40) m/uL Hgb 12.4 (11.4-16.0) gm/dL Hct 37.6 (34.0-46.0) % MCV 80.0 (80.0-100.0) fL MCH 26.5 (25.0-35.0) pg MCHC 33.1 (31.0-37.0) g/dL RDW 15.5 (11.5-15.5) % Plt Count 352 (150-450) k/uL Neutrophils % 42 % Lymphocytes % 50 % Monocytes % 4 % Eosinophils % 2 % Basophils % 1 % Neutrophils # 3.0 (1.3-7.7) k/uL Lymphocytes # 3.6 (1.0-4.8) k/uL Monocytes # 0.3 (0-1.0) k/uL Eosinophils # 0.2 (0-0.7) k/uL Basophils # 0.0 (0-0.2) k/uL Sodium 140 (137-145) mmol/L Potassium 4.9 (3.5-5.1) mmol/L Chloride 106 (98-107) mmol/L Carbon Dioxide 26 (22-30) mmol/L Anion Gap 8 mmol/L BUN 18 H (7-17) mg/dL Creatinine 1.06 H (0.52-1.04) mg/dL Est GFR (CKD-EPI)AfAm 66 (>60 ml/min/1.73 sqM) Est GFR (CKD-EPI)NonAf 57 (>60 ml/min/1.73 sqM) Glucose 174 H (74-99) mg/dL Calcium 10.1 (8.4-10.2) mg/dL Total Bilirubin 0.3 (0.2-1.3) mg/dL AST 13 L (14-36) U/L ALT 19 (9-52) U/L Alkaline Phosphatase 112 (38-126) U/L Total Protein 7.3 (6.3-8.2) g/dL Albumin 4.0 (3.5-5.0) g/dL Disposition Clinical Impression: Right knee pain, Constipation Disposition: HOME SELF-CARE Condition: Good Instructions: Constipation (ED), High Fiber Diet (ED), Knee Pain (ED) Additional Instructions: Please use medication as discussed. Please follow-up with primary care provider in the next 1-2 days. Please follow-up with orthopedic surgery in the next 1-2 days. Please return to emergency room if the symptoms increase or worsen or for any other concerns, including redness,fever, chills, increased swelling, inability to weight bear,inability to pass gas or have BM. Prescriptions: Glycerin Adult Suppository 1 each RECTAL DAILY 2 Days #2 supp Ibuprofen 800 mg PO Q8H PRN 7 Days #21 tablet PRN Reason: Pain Is patient prescribed a controlled substance at d/c from ED?: No Referrals: Daniella Wong MD [Primary Care Provider] - 1-2 days Carlos Chaipn MD [STAFF PHYSICIAN] - 1-2 days Time of Disposition: 20:01
--- NOTE | 2018-04-03 19:57 | XR ---
EXAMINATION TYPE: XR KUB DATE OF EXAM: 04/03/2018 COMPARISON: NONE HISTORY: Constipation TECHNIQUE: 2 views upright FINDINGS: There is no sign of intestinal obstruction or pneumoperitoneum. Fecal pattern is normal. Audrey ng bases are clear. There are no pathologic calcifications over the kidneys. IMPRESSION: Nonacute abdomen.
[2018-04-03] MEDS ORDERED: KETOROLAC 30 MG/ML 1 ML VIAL IM STA (20:02)
[2018-04-03] MEDS ORDERED: MAGNESIUM CITRATE 296 ML BOTTLE PO ONE (20:34)
[2018-04-03 20:41] VITALS: BP 146/96; PULSE 87; TEMP 97.6
== END 2018-04-03 20:39 | disposition home or self-care (01) ==
LOC: EC 16:00
DX: M25.562 Pain in left knee (principal); K59.00 Constipation, unspecified; E66.01 Morbid (severe) obesity due to excess calories; J44.9 Chronic obstructive pulmonary disease, unspecified; E11.9 Type 2 diabetes mellitus without complications; I10 Essential (primary) hypertension; E78.5 Hyperlipidemia, unspecified; G40.909 Epilepsy, unspecified, not intractable, without status epilepticus; G47.30 Sleep apnea, unspecified; F17.200 Nicotine dependence, unspecified, uncomplicated; Z68.43 Body mass index [BMI] 50.0-59.9, adult; Z99.89 Dependence on other enabling machines and devices; Z90.710 Acquired absence of both cervix and uterus; Z98.51 Tubal ligation status; Z98.890 Other specified postprocedural states; Z79.02 Long term (current) use of antithrombotics/antiplatelets; Z79.4 Long term (current) use of insulin; Z79.890 Hormone replacement therapy; Z79.899 Other long term (current) drug therapy
CPT/HCPCS: 36415; 80053; 85025; 73562; 74018; 93971; 99284; 96372; J1885

== ENCOUNTER → 2018-06-23 | Outpatient (CLI) | payer MEDICARE, OTHER ==
[2018-06-23 14:41] LABS: HCT 35.9 % (34.0-46.0); HGB 11.3 gm/dL (11.4-16.0); Hypochromasia Slight; MCHC 31.4 g/dL (31.0-37.0); MCV 79.6 fL (80.0-100.0); Mean Platelet Volume 9.3; Platelet Count 395 k/uL (150-450); RBC 4.52 m/uL (3.80-5.40); RDW 15.7 % (11.5-15.5); WBC 8.4 k/uL (3.8-10.6)
[2018-06-23 17:30] LABS: Erythrocyte Sedimentation Rate 58 mm/hr (0-20)
[2018-06-23 19:07] LABS: Protein, Total 6.6 g/dL (6.2-8.2)
[2018-06-23 19:12] LABS: Albumin 4.3 g/dL (3.80-4.90); Albumin/Globulin Ratio 1.87 (1.60-3.17); Anion Gap 9.2 mmol/L (4.00-12.00); Calcium 9.5 mg/dL (8.7-10.3); Carbon Dioxide 24.8 mmol/L (21.6-31.8); Globulin 2.3 g/dL (1.6-3.3); Potassium 4.6 mmol/L (3.5-5.5); Total Bilirubin 0.2 mg/dL (0.2-1.2); Total Protein 6.6 g/dL (6.2-8.2)
[2018-06-26 13:21] LABS: Albumin 3.17 g/dL (3.80-4.90); Gamma Globulin 1.07 g/dL (0.70-1.50)
== END | disposition home or self-care (01) ==
LOC: LABWHC1 12:59
PROVIDERS: ATTEND Internal Medicine
DX: R93.7 Abnormal findings on diagnostic imaging of other parts of musculoskeletal system (principal)
CPT/HCPCS: 36415; 80053; 83615; 84165; 85027; 85652

== ENCOUNTER 2018-09-25 22:26 | Emergency (ER) | payer MEDICARE, OTHER ==
[2018-09-25 22:37] VITALS: BP 178/91; PULSE 82; RESP 20; TEMP 97.9
[2018-09-25] MEDS ORDERED: SODIUM CHLORIDE 0.9% 1,000 ML IV STA (23:10)
[2018-09-25 23:46] LABS: Anisocytosis Slight; Basophils # (A) 0.1 k/uL (0-0.2); Basophils % (A) 1 %; Eosinophils # (A) 0.3 k/uL (0-0.7); Eosinophils % (A) 3 %; HCT 34.9 % (34.0-46.0); HGB 10.7 gm/dL (11.4-16.0); Hypochromasia Marked; Lymphocytes # (A) 4.2 k/uL (1.0-4.8); Lymphocytes % (A) 44 %; MCH 23.1 pg (25.0-35.0); MCHC 30.6 g/dL (31.0-37.0); MCV 75.4 fL (80.0-100.0); Mean Platelet Volume 7.6; Microcytosis Slight; Monocytes # (A) 0.4 k/uL (0-1.0); Monocytes % (A) 4 %; Neutrophils # (A) 4.5 k/uL (1.3-7.7); Neutrophils % (A) 47 %; Platelet Count 375 k/uL (150-450); RBC 4.62 m/uL (3.80-5.40); RDW 16.5 % (11.5-15.5); WBC 9.5 k/uL (3.8-10.6)
[2018-09-25] MEDS ORDERED: LIDOCAINE 5% PATCH TOPICAL STA (23:56)
[2018-09-26 00:01] LABS: Albumin 3.9 g/dL (3.5-5.0); Calcium 9.5 mg/dL (8.4-10.2); Potassium 3.9 mmol/L (3.5-5.1); Total Bilirubin 0.2 mg/dL (0.2-1.3); Total Protein 7.3 g/dL (6.3-8.2)
--- NOTE | 2018-09-26 00:07 | XR ---
EXAM: XR Abdomen, 2 Views CLINICAL HISTORY: Abdominal pain TECHNIQUE: Frontal view of the abdomen/pelvis with upright view of the abdomen. COMPARISON: X-ray dated 04/03/2018 FINDINGS: Intraperitoneal space: No free air. Gastrointestinal tract: Unremarkable. No dilation. Bones/joints: Unremarkable. IMPRESSION: Normal abdominal x-rays.
--- NOTE | 2018-09-26 00:15 | ED ---
General Adult HPI - General Chief complaint: Abdominal Pain Stated complaint: Kidney Pain Time Seen by Provider: 09/25/18 22:53 Source: patient Mode of arrival: ambulatory Limitations: no limitations - History of Present Illness Initial comments: Dictation was produced using [employer] dictation software. please excuse any grammatical, word or spelling errors. Chief Complaint: 63 old female presents with right lower back pain. History of Present Illness: Patient is a 63-year-old female she has past medical history of asthma COPD, diabetes. She also has chronic back pain. Patient states [place] she told [place] about her back pain. Her family members said that her symptoms are right where her kidneys. She was told to come to the emergency department to have her kidneys checked out. Sugey guaman has no history of nephrolithiasis. Patient denies any dysuria. Patient states that her pain is sharp localized to the right lower back region. She states worse when palpated. Furthermore she reports increased pain with various movements. Denies any constitutional symptoms. No nausea vomiting or diarrhea. The ROS documented in this emergency department record has been reviewed and confirmed by me. Those systems with pertinent positive or negative responses have been documented in the HPI. All other systems are other negative and/or noncontributory. PHYSICAL EXAM: General Impression: Alert and oriented x3, not in acute distress HEENT: Normocephalic atraumatic, extra-ocular movements intact, pupils equal and reactive to light bilaterally, mucous membranes moist. Cardiovascular: Heart regular rate and rhythm, S1&S2 audible, no murmurs, rubs or gallops Chest: Lungs clear to auscultation bilaterally, no rhonchi, no wheeze, no rales Abdomen: Bowel sounds present, abdomen soft, non-tender, non-distended, no organomegaly Musculoskeletal: Pulses present and equal in all extremities, no peripheral edema, tenderness to palpation over the right posterior superior iliac spine Motor: no focal deficits noted Neurological: CN II-XII grossly intact, no focal motor or sensory deficits noted Skin: Intact with no visualized rashes Psych: Normal affect and mood ED course: Patient is a 63-year-old female she presents today with right lower back pain. Patient has concern of kidney infection. Upon arrival are within acceptable limits. Patient's well-appearing at bedside. Physical examination is suggestive of musculoskeletal pain in origin. Laboratory evaluation obtained. CBC, metabolic panel is unremarkable. Urinalysis is negative. KUB is unremarkable. Patient given Lidoderm patch. She is given by mouth prescription for analgesia. Patient advised follow-up with primary care physician upon discharge. - Related Data Home Medications Medication Instructions Recorded Confirmed HYDROcodone/APAP 10-325MG [[place] 1 tab PO TID PRN 08/19/13 04/03/18 10] Insulin Glargine [Lantus] 65 unit SQ HS 08/19/13 04/03/18 amLODIPine BESYLATE [Norvasc] 10 mg PO DAILY 08/19/13 04/03/18 levETIRAcetam [Keppra] 750 mg PO BID 08/19/13 04/03/18 Clopidogrel [Plavix] 75 mg PO DAILY 06/06/14 04/03/18 Levothyroxine Sodium [Synthroid] 200 mcg PO DAILY 02/28/15 04/03/18 Rosuvastatin [Crestor] 10 mg PO DAILY 04/12/16 04/03/18 metFORMIN HCL 1,000 mg PO BID 12/14/16 04/03/18 Albuterol Sulfate [Proair Hfa] 2 puff INHALATION RT-Q4H PRN 04/03/18 04/03/18 Ergocalciferol (Vitamin D2) 50,000 unit PO Q7D 04/03/18 04/03/18 [Vitamin D2] Gabapentin [Neurontin] 300 mg PO TID 04/03/18 04/03/18 Insulin Lispro [humaLOG Kwikpen] 30 unit SQ AC-TID 04/03/18 04/03/18 Topiramate [Topamax] 100 mg PO BID 04/03/18 04/03/18 Previous Rx's Medication Instructions Recorded Glycerin Adult Suppository 1 each RECTAL DAILY 2 Days #2 supp 04/03/18 Ibuprofen 800 mg PO Q8H PRN 7 Days #21 tablet 04/03/18 Acetaminophen-Codeine 300-30mg 1 tab PO Q6H PRN 3 Days #12 tablet 09/26/18 [Tylenol w/codeine #3] Allergies Allergy/AdvReac Type Severity Reaction Status Date / Time No Known Allergies Allergy Verified 04/03/18 17:23 Review of Systems ROS Statement: Those systems with pertinent positive or pertinent negative responses have been documented in the HPI. ROS Other: All systems not noted in ROS Statement are negative. Past Medical History Past Medical History: Asthma, Blood Disorder, COPD, Diabetes Mellitus, Hyperlipidemia, Hypertension, Osteoarthritis (OA), Seizure Disorder, Sleep Apnea/CPAP/BIPAP Additional Past Medical History / Comment(s): HX OF ANEMIA, LAST SEIZURE YEARS AGO., STATES "MILD STROKE"-DENIES WEAKNESS OR ANY PROBLEMS , MIGRAINES, USES C-PAP MACHINE, CONSTIPATION, BACK & NECK PAIN. STATES CURRENT SUNBURN W/RASH ON ARMS. History of Any Multi-Drug Resistant Organisms: None Reported Past Surgical History: Breast Surgery, Ear Surgery, Hysterectomy, Tubal Ligation Additional Past Surgical History / Comment(s): Biopsy on left breast; cyst removed from ear; thyroid removed in Oct 2011. Colonoscopy. Past Anesthesia/Blood Transfusion Reactions: Previous Problems w/ Anesthesia Additional Past Anesthesia/Blood Transfusion Reaction / Comment(s): STATES DIFFICULTY WAKING UP AFTER ANESTHESIA, HX OF BLOOD TRANSFUSION X2 (DENIES REACTION). Past Psychological History: No Psychological Hx Reported Smoking Status: Current some day smoker Past Alcohol Use History: None Reported Past Drug Use History: None Reported - Past Family History Mother Family Medical History: Myocardial Infarction ([place]) Additional Family Medical History / Comment(s): passed at 54 Father Family Medical History: Cancer Additional Family Medical History / Comment(s): Kidney and liver [place] General Exam Limitations: no limitations Course Vital Signs 09/25/18 22:32 Temperature 97.9 F Pulse Rate 82 Respiratory 20 Rate Blood Pressure 178/91 O2 Sat by Pulse 100 Oximetry Medical Decision Making - Lab Data Result diagrams: 09/25/18 23:32 09/25/18 23:32 Lab Results 09/25/18 09/25/18 09/25/18 Range/Units 00:00 23:32 23:32 WBC 9.5 (3.8-10.6) k/uL RBC 4.62 (3.80-5.40) m/uL Hgb 10.7 L (11.4-16.0) gm/dL Hct 34.9 (34.0-46.0) % MCV 75.4 L (80.0-100.0) fL MCH 23.1 L (25.0-35.0) pg MCHC 30.6 L (31.0-37.0) g/dL RDW 16.5 H (11.5-15.5) % Plt Count 375 (150-450) k/uL Neutrophils % 47 % Lymphocytes % 44 % Monocytes % 4 % Eosinophils % 3 % Basophils % 1 % Neutrophils # 4.5 (1.3-7.7) k/uL Lymphocytes # 4.2 (1.0-4.8) k/uL Monocytes # 0.4 (0-1.0) k/uL Eosinophils # 0.3 (0-0.7) k/uL Basophils # 0.1 (0-0.2) k/uL Hypochromasia Marked Anisocytosis Slight Microcytosis Slight Sodium 140 (137-145) mmol/L Potassium 3.9 (3.5-5.1) mmol/L Chloride 109 H (98-107) mmol/L Carbon Dioxide 21 L (22-30) mmol/L Anion Gap 10 mmol/L BUN 15 (7-17) mg/dL Creatinine 0.92 (0.52-1.04) mg/dL Est GFR (CKD-EPI)AfAm 77 (>60 ml/min/1.73 sqM) Est GFR (CKD-EPI)NonAf 67 (>60 ml/min/1.73 sqM) Glucose 149 H (74-99) mg/dL Calcium 9.5 (8.4-10.2) mg/dL Total Bilirubin 0.2 (0.2-1.3) mg/dL AST 13 L (14-36) U/L ALT 12 (9-52) U/L Alkaline Phosphatase 137 H (38-126) U/L Total Protein 7.3 (6.3-8.2) g/dL Albumin 3.9 (3.5-5.0) g/dL Lipase 130 (23-300) U/L Urine Color Yellow Urine Appearance Cloudy H (Clear) Urine pH 5.5 (5.0-8.0) Ur Specific [place] 1.014 (1.001-1.035) Urine Protein Negative (Negative) Urine Glucose (UA) Negative (Negative) Urine Ketones Negative (Negative) Urine Blood Negative (Negative) Urine Nitrite Negative (Negative) Urine Bilirubin Negative (Negative) Urine Urobilinogen <2.0 (<2.0) mg/dL Ur Leukocyte Esterase Trace H (Negative) Urine RBC 1 (0-5) /hpf Urine WBC 3 (0-5) /hpf Ur Squamous Epith Cells 7 H (0-4) /hpf Urine Bacteria Rare H (None) /hpf Urine Mucus Rare H (None) /hpf Disposition Clinical Impression: Back strain Disposition: HOME SELF-CARE Condition: Good Prescriptions: Acetaminophen-Codeine 300-30mg [Tylenol w/codeine #3] 1 tab PO Q6H PRN 3 Days #12 tablet PRN Reason: Pain Is patient prescribed a controlled substance at d/c from ED?: Yes If prescribed controlled substance>3 days was MAPS reviewed?: Prescribed <3 Days Referrals: Daniella Wong MD [Primary Care Provider] - 1-2 days Time of Disposition: 01:31
[2018-09-26 00:25] LABS: Appearance,Urine Cloudy (Clear); Bacteria,Urine Rare /hpf; Bilirubin,Urine Negative (Negative); Blood,Urine Negative (Negative); Color,Urine Yellow; Glucose,Urine (UA) Negative (Negative); Ketones,Urine Negative (Negative); Leukocyte Esterase,Urine Trace (Negative); Mucus,Urine Rare /hpf; Nitrite,Urine Negative (Negative); PH, Urine 5.5 (5.0-8.0); Protein,Urine Negative (Negative); RBC,Urine 1 /hpf (0-5); Specific Gravity,Urine 1.014 (1.001-1.035); Squamous Epithelial Cell,Urine 7 /hpf (0-4); Urobilinogen,Urine <2.0 mg/dL (<2.0)
== END 2018-09-26 01:58 | disposition home or self-care (01) ==
LOC: EC 22:26
DX: S39.012A Strain of muscle, fascia and tendon of lower back, initial encounter (principal); J44.9 Chronic obstructive pulmonary disease, unspecified; E11.9 Type 2 diabetes mellitus without complications; E78.5 Hyperlipidemia, unspecified; I10 Essential (primary) hypertension; G40.909 Epilepsy, unspecified, not intractable, without status epilepticus; G47.30 Sleep apnea, unspecified; F17.200 Nicotine dependence, unspecified, uncomplicated; Z79.4 Long term (current) use of insulin; Z79.02 Long term (current) use of antithrombotics/antiplatelets; Z79.890 Hormone replacement therapy; Z79.899 Other long term (current) drug therapy; Z86.73 Personal history of transient ischemic attack (TIA), and cerebral infarction without residual deficits
CPT/HCPCS: 36415; 74018; 80053; 81001; 83690; 85025; 96360; 96361; 99284